=== PATIENT | male | born 1995 | race Caucasian/White ===

== ENCOUNTER 2021-03-18 13:57 | Outpatient (REF) | payer OTHER, SELFPAY ==
[2021-03-18 14:55] LABS: Influenza A PCR NEGATIVE (Negative); Influenza B PCR NEGATIVE (Negative); Resp Syncy Virus RNA Qual PCR NEGATIVE (Negative); SARS COV2 PCR INHOUSE NEGATIVE (Negative)
== END 2021-03-18 13:58 | disposition home or self-care (01) ==
LOC: HO.LNP 13:57
PROVIDERS: Visit Provider Physician Assistant Medical
DX: Z20.822 Contact with and (suspected) exposure to COVID-19 (principal); J06.9 Acute upper respiratory infection, unspecified
CPT/HCPCS: 0241U

== ENCOUNTER 2021-08-12 12:58 | Inpatient (IN) | payer OTHER, MEDICAID, SELFPAY ==
--- NOTE | ~2021-08-12 | XR_ITS ---
EXAMINATION: XR CHEST CLINICAL INFORMATION: Fever COMPARISON: None TECHNIQUE: Frontal view of the chest was obtained. FINDINGS: The lungs are well expanded. There is no focal consolidation, edema, or effusion. No pneumothorax. The cardiomediastinal silhouette is within normal limits. No acute osseous abnormality. XR/XR chest 1V IMPRESSION: Clear lungs.
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
[2021-08-12 13:10] VITALS: BP 141/88; PULSE 108; RESP 16; TEMP 37.8; O2SAT 95; BMI 24.7
[2021-08-12] MEDS: LORazepam 1 MG TABLET PO (14:09)
[2021-08-12 15:23] VITALS: BP 116/69; PULSE 90; RESP 16; TEMP 36.6; O2SAT 99
[2021-08-12 15:28] LABS: MANUAL DIFF FLAG NO
[2021-08-12 15:34] LABS: Basophils Percent Auto 0.2 % (0-2); Eosinophils Percent Auto 0.2 % (0-4); Hemoglobin 13.7 g/dl (14.0-18.0); Imm Gran Abs Auto 0.03 X10*3/uL (0.00-0.03); Imm Gran Pct Auto 0.3 % (0.0-0.4); Lymphocytes Absolute Auto 1.2 X10*3/uL (1.2-4.9); Lymphocytes Percent Auto 14.2 % (20-40); Mean Corpuscular HGB Conc 35.1 g/dl (31.0-36.0); Mean Corpuscular Hemoglobin 31.9 pg (27.0-33.0); Mean Corpuscular Volume 90.7 fL (80.0-98.0); Mean Platelet Volume 10.1 fL (9.4-12.4); Monocytes Absolute Auto 0.4 X10*3/uL (0.1-1.2); Neutrophils Absolute Auto 6.9 x10*3/uL (2.0-8.3); Neutrophils Percent Auto 80.1 % (45-73); Platelet Count 241 X10*3/uL (160-400); Red Cell Distribution Width 12.1 % (11.0-16.0); White Blood Count 8.6 X10*3/uL (4.8-10.8)
[2021-08-12 15:56] LABS: Alanine Aminotransferase 19 U/L (0-40); Albumin Level 4.4 g/dL (3.5-5.0); Alkaline Phosphatase 48 U/L (39-117); Anion Gap 15 (12-20); Aspartate Amino Transferase 30 U/L (5-37); Bilirubin Direct 0.4 mg/dL (0.0-0.5); Bilirubin Total 0.9 mg/dL (0.0-1.0); Blood Urea Nitrogen 15 mg/dL (9-16); Calcium 9.5 mg/dL (8.4-10.2); Carbon Dioxide 22 mmol/L (22-29); Chloride 107 mmol/L (96-108); Estimated Glomerular Filt Rate > 60; Glucose Random 94 mg/dL (60-115); Potassium 3.9 mmol/L (3.3-5.1); Sodium 140 mmol/L (135-145); Total Protein 7.2 g/dL (6.5-8.0)
[2021-08-12 15:58] LABS: Amphetamine Screen Urine Not Detected (Not Detect); Barbiturates, Urine Not Detected (Not Detect); Benzodiazepines Screen Urine Not Detected (Not Detect); Cannabinoid Screen Urine POSITIVE (Not Detect); Cocaine Screen Urine POSITIVE (Not Detect); Fentanyl, urine POSITIVE (Not Detect); Opiate Screen Urine Not Detected (Not Detect); Phencyclidine Screen Urine Not Detected (Not Detect)
[2021-08-12 15:59] LABS: COVID-19 Test Negative (Negative)
[2021-08-13 00:27] VITALS: BP 124/63; PULSE 94; RESP 16; TEMP 36.6; O2SAT 99
[2021-08-13] MEDS: LORazepam 1 MG TABLET PO (00:52)
[2021-08-13] MEDS: Nicotine Polacrilex 2 MG GUM BUCCAL ×2 (00:52→20:07)
--- NOTE | 2021-08-13 01:28 | PC.NURSE ---
Pt has been awake since around midnight, pacing in and out of room. Speech can be pressured at times, delusional thought content. Pt reported wanting a cigarette, order for nicotine gum obtained and administered. Pt also requested ativan, stating that it might hopefully help him relax and possibly go back to sleep. Order for 1 mg ativan obtained, medicated per JUN at 0052. Pt has still been in and out of room, currently laying in bed.
[2021-08-13 10:46] VITALS: BP 117/76; PULSE 104; O2SAT 96
[2021-08-13] MEDS: cloNIDine HCL 0.1 MG TABLET PO ×3 (11:00→19:49)
[2021-08-13] MEDS: hydrOXYzine HCL 25 MG TABLET PO ×2 (11:00→19:50)
[2021-08-13 15:16] VITALS: BP 129/77; PULSE 105; RESP 18; TEMP 36.8; O2SAT 96
--- NOTE | 2021-08-13 19:05 | PC.NURSE ---
Took report from Katarina to assume care of Pt, Pt calm/cooperative at this time, talking with other patients, safety maintained, this RN continues to monitor.
--- NOTE | 2021-08-13 20:10 | PC.NURSE ---
Pt medicated with bedtime med and requested Nicotine gum, Pt calm/cooperative at this time, safety maintained, this RN continues to monitor.
--- NOTE | 2021-08-13 22:20 | PC.NURSE ---
Stefani from Care Team with Pt, tSefani educating Pt voluntary option, Pt took clip board and pen and walked around the Pod while reading documents, Pt refused to sign CV, Pt calm throughout and gave clip board and pens back to Stefani.
--- NOTE | 2021-08-13 23:21 | PC.NURSE ---
Pt watching tv in community area with other Pt, Pt calm/cooperative at this time, safety maintained, this RN continues to monitor.
--- NOTE | 2021-08-14 | ECG_ITS ---
Test Reason : MED CLEARANCE Blood Pressure : / mmHG Vent. Rate : 111 BPM Atrial Rate : 111 BPM P-R Int : 112 ms QRS Dur : 090 ms QT Int : 330 ms P-R-T Axes : 054 075 057 degrees QTc Int : 448 ms Sinus tachycardia Otherwise normal ECG No previous ECGs available Referred By: Itzel Cormier Electronically Signed By:Nickolas Samayao
--- NOTE | 2021-08-14 04:53 | PC.NURSE ---
Pt sleeping, chest rise and fall observed, safety maintained, this RN continues to monitor.
--- NOTE | 2021-08-14 06:39 | PC.NURSE ---
Pt sleeping, chest rise and fall observed, safety maintained, this RN continues to monitor.
[2021-08-14] MEDS: cloNIDine HCL 0.1 MG TABLET PO ×3 (09:04→20:07)
[2021-08-14] MEDS: hydrOXYzine HCL 25 MG TABLET PO ×2 (09:04→20:07)
[2021-08-14 10:11] VITALS: BP 141/96; PULSE 113; RESP 18; TEMP 36.7; O2SAT 97
--- NOTE | 2021-08-14 12:49 | PC.NURSE ---
Pt declined flu vaccine, stated he's already been immunized this season.
--- NOTE | 2021-08-14 12:51 | PC.NURSE ---
Pt stated he smokes 1/2 pack cigarettes a day but denied nicotine replacement. He said it doesn't work and the gum tastes gross.
[2021-08-14] MEDS: HaloperidoL 5 MG TABLET PO (12:59)
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
[2021-08-14 20:04] VITALS: BP 122/71; PULSE 87; RESP 18; TEMP 36.4
[2021-08-14] MEDS: Divalproex Sodium ER 500 MG TAB.ER.24H PO (20:06)
[2021-08-14] MEDS: Benztropine Mesylate 1 MG TABLET PO (20:07)
--- NOTE | 2021-08-14 21:21 | PC.NURSE ---
Pt signed a Three Day Notice on Sunday08/14/21 up on 08/18/21.
[2021-08-15 08:00] VITALS: BP 123/72; PULSE 116; TEMP 37.8; O2SAT 97
[2021-08-15 08:40] LABS: Estimated Average Glucose 94 mg/dL; Hemoglobin A1c % 4.9 %
[2021-08-15] MEDS: Benztropine Mesylate 1 MG TABLET PO ×2 (09:01→21:19)
[2021-08-15] MEDS: cloNIDine HCL 0.1 MG TABLET PO ×2 (09:01→21:19)
[2021-08-15] MEDS: hydrOXYzine HCL 25 MG TABLET PO ×2 (09:01→21:19)
[2021-08-15 09:04] LABS: Cholesterol 99 mg/dL; HDL Cholesterol 44 mg/dL; LDL Cholesterol Calculated 45 mg/dl; Magnesium 2.2 mg/dL (1.6-2.6); Triglycerides 51 mg/dL
[2021-08-15 09:18] LABS: Free T4 (Free Thyroxine) 1.32 ng/dL (0.71-1.85); Thyroid Stimulating Hormone 0.37 uIU/mL (0.32-4.0)
[2021-08-15 09:51] LABS: Folate 4.4 ng/mL (> or = 4.0); Vitamin B12 788 pg/mL (200-900)
[2021-08-15] MEDS: LORazepam 1 MG TABLET PO (15:18)
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
[2021-08-15 15:24] VITALS: BP 81/46
[2021-08-15 20:00] VITALS: BP 112/59; PULSE 102; TEMP 38.4; O2SAT 95
[2021-08-15] MEDS: Divalproex Sodium ER 500 MG TAB.ER.24H 1000 MG PO (21:18)
[2021-08-16] MEDS: Acetaminophen 325 MG TABLET 650 MG PO ×2 (01:53→08:56)
[2021-08-16 02:02] VITALS: TEMP 38.7
[2021-08-16 03:00] VITALS: TEMP 38
[2021-08-16 03:25] LABS: COVID-19 Test Negative (Negative)
[2021-08-16 03:26] LABS: MANUAL DIFF FLAG NO
[2021-08-16 03:27] LABS: Basophils Percent Auto 0.5 % (0-2); Eosinophils Percent Auto 0.2 % (0-4); Hematocrit 37.5 % (42.0-52.0); Imm Gran Abs Auto 0.01 X10*3/uL (0.00-0.03); Imm Gran Pct Auto 0.2 % (0.0-0.4); Lymphocytes Absolute Auto 1.3 X10*3/uL (1.2-4.9); Lymphocytes Percent Auto 32.3 % (20-40); Mean Corpuscular HGB Conc 34.7 g/dl (31.0-36.0); Mean Corpuscular Hemoglobin 31.3 pg (27.0-33.0); Mean Corpuscular Volume 90.1 fL (80.0-98.0); Mean Platelet Volume 9.9 fL (9.4-12.4); Monocytes Absolute Auto 0.7 X10*3/uL (0.1-1.2); Monocytes Percent Auto 17.2 % (2-11); Neutrophils Percent Auto 49.6 % (45-73); Platelet Count 182 X10*3/uL (160-400); Red Blood Count 4.16 X10*6/uL (4.60-5.80)
[2021-08-16 03:46] LABS: Anion Gap 13 (12-20); Blood Urea Nitrogen 14 mg/dL (9-16); Carbon Dioxide 24 mmol/L (22-29); Chloride 101 mmol/L (96-108); Creatinine Clr Calc Pharmacy 101.2; Estimated Glomerular Filt Rate > 60; Glucose Random 111 mg/dL (60-115); Potassium 3.7 mmol/L (3.3-5.1); Sodium 134 mmol/L (135-145)
[2021-08-16] MEDS: LORazepam 1 MG TABLET PO ×2 (03:57→21:51)
--- NOTE | 2021-08-16 04:23 | PC.NURSE ---
Pt Had temp of 101.7 @ 0130. Gave Tylenol 650mg and notified on-call, Chest xray, throat culture, covid swab, CBC, BMP and Urine culture ordered STAT. Urine and both covid and throat culture were sent to lab stat. Temp at 0300 was 100.4. 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 Pending results of tests. Pt given Ativan to help sleep. Pt denies and pain, aches or sx consistent with covid or the flu. Pt was tested and was covid negative on 08/12. Pt is resting comfortably and appears to be asleep. Will continue to monitor.
[2021-08-16 06:00] VITALS: BP 95/60; PULSE 79; RESP 16; TEMP 37.8; O2SAT 100
[2021-08-16] MEDS: Benztropine Mesylate 1 MG TABLET PO ×2 (08:10→21:52)
[2021-08-16] MEDS: cloNIDine HCL 0.1 MG TABLET PO ×3 (08:10→21:51)
[2021-08-16] MEDS: hydrOXYzine HCL 25 MG TABLET PO ×2 (08:11→21:52)
[2021-08-16 10:18] VITALS: TEMP 36.9
[2021-08-16 14:03] VITALS: BP 109/60; PULSE 96; RESP 16; TEMP 37.2; O2SAT 99
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
[2021-08-16 21:45] VITALS: BP 114/78; PULSE 113; TEMP 36.7; O2SAT 97
[2021-08-16] MEDS: HaloperidoL 5 MG TABLET PO (21:51)
[2021-08-16] MEDS: Divalproex Sodium ER 500 MG TAB.ER.24H 1000 MG PO (21:51)
[2021-08-17] MEDS: LORazepam 1 MG TABLET PO ×3 (00:09→19:34)
[2021-08-17] MEDS: cloNIDine HCL 0.1 MG TABLET PO ×2 (08:38→14:42)
[2021-08-17] MEDS: hydrOXYzine HCL 25 MG TABLET PO (08:38)
[2021-08-17] MEDS: Benztropine Mesylate 1 MG TABLET PO ×2 (08:38→19:34)
[2021-08-17] MEDS: HaloperidoL 5 MG TABLET PO ×2 (08:39→19:34)
[2021-08-17 08:42] VITALS: BP 120/62; PULSE 82; RESP 18; TEMP 36.8; O2SAT 99
[2021-08-17 14:43] VITALS: BP 110/69; PULSE 94
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
[2021-08-17 16:44] VITALS: BP 114/66; PULSE 81; TEMP 36.7; O2SAT 97
[2021-08-17] MEDS: Divalproex Sodium ER 250 MG TAB.ER.24H 750 MG PO (19:33)
[2021-08-18] MEDS: LORazepam 1 MG TABLET PO ×2 (00:12→20:33)
[2021-08-18] MEDS: hydrOXYzine HCL 25 MG TABLET PO (00:36)
[2021-08-18 06:00] VITALS: BP 115/61; PULSE 92; RESP 18; TEMP 38.2; O2SAT 95
[2021-08-18 07:00] VITALS: BMI 20.3
[2021-08-18] MEDS: Benztropine Mesylate 1 MG TABLET PO ×2 (08:14→20:31)
[2021-08-18] MEDS: HaloperidoL 5 MG TABLET PO ×2 (08:15→20:33)
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
[2021-08-18 18:00] VITALS: BP 104/62; PULSE 93; RESP 20; TEMP 37.2; O2SAT 96
[2021-08-18] MEDS: Divalproex Sodium ER 250 MG TAB.ER.24H 750 MG PO (20:32)
[2021-08-18] MEDS: QUEtiapine Fumarate 100 MG TABLET PO (20:35)
[2021-08-19] MEDS: LORazepam 1 MG TABLET PO ×2 (00:54→20:30)
[2021-08-19] MEDS: Benztropine Mesylate 1 MG TABLET PO ×2 (07:52→20:30)
[2021-08-19] MEDS: HaloperidoL 5 MG TABLET PO ×2 (07:53→20:30)
[2021-08-19 07:54] VITALS: BP 123/94; PULSE 94; RESP 18; TEMP 37; O2SAT 94
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
[2021-08-19] MEDS: LORazepam 1 MG TABLET 2 MG PO (11:19)
[2021-08-19 18:00] VITALS: BP 118/69; PULSE 89; RESP 16; TEMP 36.5; O2SAT 98
[2021-08-19] MEDS: QUEtiapine Fumarate 100 MG TABLET PO (20:30)
[2021-08-19] MEDS: Divalproex Sodium ER 250 MG TAB.ER.24H 750 MG PO (20:30)
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
[2021-08-20] MEDS: Benztropine Mesylate 1 MG TABLET PO ×2 (08:50→21:22)
[2021-08-20] MEDS: HaloperidoL 5 MG TABLET PO ×2 (08:50→21:22)
[2021-08-20 09:40] VITALS: BP 113/67; PULSE 102; TEMP 37.5; O2SAT 98
[2021-08-20 21:15] VITALS: BP 102/59; PULSE 96; TEMP 37.1; O2SAT 98
[2021-08-20] MEDS: Divalproex Sodium ER 250 MG TAB.ER.24H 750 MG PO (21:22)
[2021-08-20] MEDS: QUEtiapine Fumarate 100 MG TABLET PO (21:22)
[2021-08-20] MEDS: LORazepam 1 MG TABLET PO (21:22)
[2021-08-20] MEDS: hydrOXYzine HCL 25 MG TABLET PO (21:51)
[2021-08-20] MEDS: Hydrocortisone 1 % Cream 28.35 GM TUBE 1 APPL TOPICAL (22:23)
--- NOTE | 2021-08-21 00:04 | PC.NURSE ---
Patient c/o mild itching and slight rash to bilateral arms and underarms. The rash was minimally visible with a few very small scattered pink spots on each arm and armpit. fisher scallop provider notified and topical cortisone cream was ordered as well as scheduled Hydroxyzine 25 mg po bid. Patient denied any sob or throat swelling.
[2021-08-21 06:00] VITALS: BP 89/54; PULSE 52; RESP 16; TEMP 36.7; O2SAT 98
[2021-08-21] MEDS: hydrOXYzine HCL 25 MG TABLET PO ×2 (08:38→21:47)
[2021-08-21] MEDS: Benztropine Mesylate 1 MG TABLET PO ×2 (08:38→21:48)
[2021-08-21] MEDS: HaloperidoL 5 MG TABLET PO ×2 (08:38→21:47)
[2021-08-21 09:07] LABS: Ammonia 59 umol/L (13-55)
[2021-08-21 09:10] LABS: Valproate 88.1 mcg/mL (50.0-100.0)
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
[2021-08-21 16:25] VITALS: BP 121/74; PULSE 71; TEMP 36.5; O2SAT 98
[2021-08-21 20:25] VITALS: BP 127/78; PULSE 72; TEMP 37.1; O2SAT 98
[2021-08-21] MEDS: QUEtiapine Fumarate 100 MG TABLET PO (21:45)
[2021-08-21] MEDS: Divalproex Sodium ER 250 MG TAB.ER.24H 750 MG PO (21:46)
[2021-08-21] MEDS: LORazepam 1 MG TABLET PO (21:48)
[2021-08-21] MEDS: Acetaminophen 325 MG TABLET 650 MG PO (22:07)
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
[2021-08-22 06:00] VITALS: BP 101/54; PULSE 64; RESP 18; TEMP 36.4; O2SAT 98
[2021-08-22] MEDS: Benztropine Mesylate 1 MG TABLET PO ×2 (08:30→20:21)
[2021-08-22] MEDS: HaloperidoL 5 MG TABLET PO ×2 (08:30→20:21)
[2021-08-22] MEDS: hydrOXYzine HCL 25 MG TABLET PO ×2 (08:31→20:20)
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
[2021-08-22 16:20] VITALS: BP 118/71; PULSE 76; TEMP 36.9; O2SAT 99
[2021-08-22] MEDS: Acetaminophen 325 MG TABLET 650 MG PO (16:50)
[2021-08-22] MEDS: Divalproex Sodium ER 250 MG TAB.ER.24H 750 MG PO (20:20)
[2021-08-22] MEDS: LORazepam 1 MG TABLET PO (20:20)
[2021-08-22] MEDS: QUEtiapine Fumarate 100 MG TABLET PO (20:21)
[2021-08-23 06:00] VITALS: BP 111/60; PULSE 73; RESP 18; TEMP 36.7; O2SAT 98
[2021-08-23] MEDS: Benztropine Mesylate 1 MG TABLET PO ×2 (08:04→20:31)
[2021-08-23] MEDS: HaloperidoL 5 MG TABLET PO ×2 (08:04→20:31)
[2021-08-23] MEDS: hydrOXYzine HCL 25 MG TABLET PO ×2 (08:04→20:36)
[2021-08-23] MEDS: Lactulose 20 GM/30 ML SOLUTION PO ×2 (08:49→20:31)
[2021-08-23 09:16] LABS: MANUAL DIFF FLAG NO
[2021-08-23 09:19] LABS: Basophils Percent Auto 0.3 % (0-2); Eosinophils Absolute Auto 0.3 X10*3/uL (0.0-0.4); Eosinophils Percent Auto 4.2 % (0-4); Hematocrit 43.4 % (42.0-52.0); Hemoglobin 14.8 g/dl (14.0-18.0); Imm Gran Abs Auto 0.02 X10*3/uL (0.00-0.03); Imm Gran Pct Auto 0.3 % (0.0-0.4); Lymphocytes Absolute Auto 2.7 X10*3/uL (1.2-4.9); Lymphocytes Percent Auto 42.3 % (20-40); Mean Corpuscular HGB Conc 34.1 g/dl (31.0-36.0); Mean Corpuscular Hemoglobin 31.3 pg (27.0-33.0); Mean Corpuscular Volume 91.8 fL (80.0-98.0); Mean Platelet Volume 10.3 fL (9.4-12.4); Monocytes Absolute Auto 0.6 X10*3/uL (0.1-1.2); Monocytes Percent Auto 9.6 % (2-11); Neutrophils Absolute Auto 2.7 x10*3/uL (2.0-8.3); Neutrophils Percent Auto 43.3 % (45-73); Platelet Count 191 X10*3/uL (160-400); Red Blood Count 4.73 X10*6/uL (4.60-5.80); Red Cell Distribution Width 11.9 % (11.0-16.0); White Blood Count 6.3 X10*3/uL (4.8-10.8)
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
[2021-08-23 11:29] LABS: Ammonia 48 umol/L (13-55)
[2021-08-23 18:00] VITALS: BP 116/67; PULSE 66; TEMP 36.8; O2SAT 98
[2021-08-23] MEDS: LORazepam 1 MG TABLET PO (20:30)
[2021-08-23] MEDS: QUEtiapine Fumarate 100 MG TABLET PO (20:31)
[2021-08-24 06:00] VITALS: BP 96/54; PULSE 97; RESP 16; TEMP 36.6; O2SAT 95
[2021-08-24] MEDS: Lactulose 20 GM/30 ML SOLUTION PO ×2 (08:08→20:12)
[2021-08-24] MEDS: HaloperidoL 5 MG TABLET PO ×2 (08:09→20:12)
[2021-08-24] MEDS: Benztropine Mesylate 1 MG TABLET PO ×2 (08:09→20:12)
[2021-08-24] MEDS: hydrOXYzine HCL 25 MG TABLET PO ×2 (08:09→20:13)
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
[2021-08-24 19:15] VITALS: BP 116/73; PULSE 83; TEMP 36.8; O2SAT 97
[2021-08-24] MEDS: LORazepam 1 MG TABLET PO (20:12)
[2021-08-24] MEDS: QUEtiapine Fumarate 100 MG TABLET PO (20:12)
[2021-08-25 06:00] VITALS: BP 113/57; PULSE 75; RESP 16; TEMP 36.8; O2SAT 98
[2021-08-25] MEDS: hydrOXYzine HCL 25 MG TABLET PO ×2 (08:20→20:22)
[2021-08-25] MEDS: Benztropine Mesylate 1 MG TABLET PO ×2 (08:20→20:23)
[2021-08-25] MEDS: Lactulose 20 GM/30 ML SOLUTION PO ×2 (08:21→20:23)
[2021-08-25] MEDS: HaloperidoL 5 MG TABLET PO ×2 (08:21→20:23)
[2021-08-25] MEDS: LORazepam 1 MG TABLET PO ×2 (11:05→20:23)
--- NOTE | 2021-08-25 12:08 | P.PNPSI_ITS ---
Subjective Subjective Date of Service: 08/26/21 Reason For Visit: Bipolar disorder, polysubstance abuse Subjective Notes: Conditional Voluntary Interim History: Pt continues to present with clear thought process. He reports medications working well in that he can think more clearly. He reports sleeping and eating well. He denies SI/HI. No overt psychosis or delusional content noted or reported. Per nursing, pt visible in the unit, social with select peers. Medication Compliance: Yes Side effects from medications: No Attending Groups: Yes Review of Systems Acute medical concerns: No Review of Systems Review of Systems Yes all other systems are reviewed and are negative Reports behavioral changes and Reports memory loss Psychiatric: Reports abnormal sleep pattern, Reports anxiety, Reports behavioral changes, Reports difficulty concentrating, Reports auditory hallucinations, Reports irritability, Reports anhedonia, Reports memory loss, Reports mood swings, Reports paranoia and Reports suicidal ideation (denies) Mental Status Exam Mental Status Exam Narrative: Appearance: casually groomed, fair hygiene in NAD, Behavior:cooperative psychomotor: no agitation or retardation noted Speech:clear, no pressured, or hyperverbal, regular tone, spontaneous Thought process:mostly linear Thought content:increase insight into need for treatment and medications, no overt delusional content reported or noted. Mood: okay Affect: congruent. SI:none HI:none VH/AH:none Delusions:none Insight/judgment:improving x 2. Memory/cog: alert, not oriented x 3. improving Diagnostics Vital Signs (24Hr): Vital Signs - 24 hr 08/25/21 19:30 08/26/21 06:00 Temperature 98.4 F 97.7 F Pulse Rate 86 82 Respiratory Rate 18 16 Blood Pressure 128/76 103/58 L Pulse Oximetry 98 99 BMI result Body Mass Index 20.3 Labs Results: 08/23/21 08:58 08/16/21 03:22 Imaging Radiology Impressions: ITS Impressions Chest X-Ray 08/16/21 03:58 IMPRESSION: Clear lungs. Soft Tissue Neck X-Ray 08/21/21 20:53 IMPRESSION: Unremarkable examination. Medications Medications Current Medications Acetaminophen (Acetaminophen 325 Mg Tablet) 650 mg PO Q6H PRN PRN Reason: Headache/Pain Mild Scale (1-3) Last Admin: 08/22/21 16:50 Dose: 650 mg Documented by: Al Hydroxide/Mg Hydroxide (Magnesium Hydrox/Alum Hydrox 30 Ml Oral.Susp) 30 ml PO Q6H PRN PRN Reason: Heartburn/Nausea Benztropine Mesylate (Benztropine Mesylate 1 Mg Tablet) 1 mg PO BID [facility] Last Admin: 08/26/21 08:45 Dose: 1 mg Documented by: Clonidine HCl (Clonidine Hcl 0.1 Mg Tablet) 0.1 mg PO BID PRN; Protocol PRN Reason: anxiety Last Admin: 08/25/21 20:11 Dose: 0.1 mg Documented by: Haloperidol (Haloperidol 5 Mg Tablet) 5 mg PO BID PRN PRN Reason: psychosis, agitation Last Admin: 08/14/21 12:59 Dose: 5 mg Documented by: Haloperidol (Haloperidol 5 Mg Tablet) 5 mg PO BID [facility] Last Admin: 08/26/21 08:45 Dose: 5 mg Documented by: Hydrocortisone (Hydrocortisone 1 % Cream 28.35 Gm Tube) 1 appl TOPICAL BID PRN; Protocol PRN Reason: Rash Last Admin: 08/20/21 22:23 Dose: 1 appl Documented by: Hydroxyzine HCl (Hydroxyzine Hcl 25 Mg Tablet) 25 mg PO BEDTIME PRN PRN Reason: Anxiety Last Admin: 08/20/21 21:51 Dose: 25 mg Documented by: Hydroxyzine HCl (Hydroxyzine Hcl 25 Mg Tablet) 25 mg PO BID [facility] Last Admin: 08/26/21 08:45 Dose: 25 mg Documented by: Lactulose (Lactulose 20 Gm/30 Ml Solution) 20 gm PO BID [facility] Last Admin: 08/26/21 08:45 Dose: 20 gm Documented by: Lorazepam (Lorazepam 1 Mg Tablet) 1 mg PO BEDTIME [facility] Last Admin: 08/25/21 20:23 Dose: 1 mg Documented by: Lorazepam (Lorazepam 1 Mg Tablet) 1 mg PO Q4H PRN PRN Reason: anxiety/restlessness Last Admin: 08/25/21 11:05 Dose: 1 mg Documented by: Magnesium Hydroxide (Milk Of Magnesia 30 Ml Oral.Susp) 30 ml PO DAILY PRN PRN Reason: Constipation Quetiapine Fumarate (Quetiapine Fumarate 100 Mg Tablet) 100 mg PO BEDTIME [facility] Last Admin: 08/25/21 20:22 Dose: 100 mg Documented by: Trazodone HCl (Trazodone Hcl 50 Mg Tablet) 150 mg PO BEDTIME PRN PRN Reason: Insomnia Allergies Allergies Allergy/AdvReac Type Severity Reaction Status Date / Time nut - unspecified [NUTS] Allergy Severe ANAPHYLAXIS Verified 03/18/21 11:51 oxycodone AdvReac Itching Verified 08/12/21 13:25 Seasonal Allergies AdvReac Runny Nose Verified 08/16/21 11:46 Assessment & Plan Assessment & Plan (1) Bipolar disorder: Status: Acute Code(s): F31.9 - Bipolar disorder, unspecified (2) Cocaine use disorder: Status: Acute Code(s): F14.10 - Cocaine abuse, uncomplicated (3) Cannabis use disorder, moderate, dependence: Status: Acute Code(s): F12.20 - Cannabis dependence, uncomplicated Plan continue current medications- ammonia back to normal levels. pt improving, less confused, less agitated. no overt delusions, increased insight. No SI/HI. I spent __25____ minutes with the patient and/or on the patient floor today, greater than?50% of which was spent counseling/coordinating care. Reason for contiued inpatient stay Substantial Risk for: stable for discharge
[2021-08-25 19:30] VITALS: BP 128/76; PULSE 86; RESP 18; TEMP 36.9; O2SAT 98
[2021-08-25] MEDS: cloNIDine HCL 0.1 MG TABLET PO (20:11)
[2021-08-25] MEDS: QUEtiapine Fumarate 100 MG TABLET PO (20:22)
[2021-08-26 06:00] VITALS: BP 103/58; PULSE 82; RESP 16; TEMP 36.5; O2SAT 99
[2021-08-26] MEDS: Benztropine Mesylate 1 MG TABLET PO (08:45)
[2021-08-26] MEDS: hydrOXYzine HCL 25 MG TABLET PO (08:45)
[2021-08-26] MEDS: Lactulose 20 GM/30 ML SOLUTION PO (08:45)
[2021-08-26] MEDS: HaloperidoL 5 MG TABLET PO (08:45)
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
== END 2021-08-26 10:29 | disposition home or self-care (01) | DRG 753 ==
LOC: HO.ED 15:47 → HO.PM5 08-14 11:37
PROVIDERS: Psychiatry & Neurology Psychiatry; Social Worker; Admitting Provider Psychiatry & Neurology Psychiatry; Emergency Provider Emergency Medicine; PCP Internal Medicine; Visit Provider Clinical Nurse Specialist Psychiatric/Mental Health, Adult
DX: F31.9 Bipolar disorder, unspecified (principal); Z91.14 Patient's other noncompliance with medication regimen; F12.20 Cannabis dependence, uncomplicated; F14.10 Cocaine abuse, uncomplicated; F41.9 Anxiety disorder, unspecified; F17.210 Nicotine dependence, cigarettes, uncomplicated; Z20.822 Contact with and (suspected) exposure to COVID-19; Z71.6 Tobacco abuse counseling; Z88.5 Allergy status to narcotic agent; Z79.899 Other long term (current) drug therapy
CPT/HCPCS: 36415; 70360; 71045; 80048; 80061; 80076; 80164; 80307; 82140; 82607; 82746; 83036; 83735; 84439; 84443; 85025; 87071; 87086; 87635; 93005; 99285